=== PATIENT | female | born 1985 | race Caucasian/White ===

== ENCOUNTER → 2017-05-22 | Emergency (ER) | payer OTHER ==
[~2017-05-22] VITALS: Ht 157.5 cm; Wt 59.0 kg
[~2017-05-22] MED LIST: BACTROBAN OINT22 GM TP; COPAXONE20 MG/KIT; DAY T; KARIVA; OSEL75CA PO; TUSSI PRES-B L120 M1 PO
== END | disposition home or self-care (01) ==
LOC: ER 07:13
DX: B34.9 Viral infection, unspecified (principal)

== ENCOUNTER 2017-06-22 12:49 | Outpatient (CLI) | payer OTHER | END 2017-06-22 12:52 | disposition home or self-care (01) | LOC: SONOGRAMA 12:49 | DX: N60.02 Solitary cyst of left breast (principal); N64.3 Galactorrhea not associated with childbirth ==

== ENCOUNTER 2018-01-07 07:36 | Outpatient (CLI) | payer OTHER | END 2018-01-07 07:46 | disposition home or self-care (01) | LOC: MRI 07:36 | DX: G35 Multiple sclerosis (principal) | CPT/HCPCS: 70551; 72141 ==

== ENCOUNTER 2018-04-07 23:10 | Emergency (ER) | payer OTHER ==
[~2018-04-07] VITALS: Ht 157.5 cm; Wt 56.7 kg
[2018-04-08] MEDS ORDERED: PEPCID40 MG PO (03:44)
[2018-04-08] MEDS ORDERED: PHENERGAN25 MG PO (03:44)
== END 2018-04-08 03:56 | disposition home or self-care (01) ==
LOC: ER 23:10
DX: K52.9 Noninfective gastroenteritis and colitis, unspecified (principal)

== ENCOUNTER 2018-06-10 13:09 | Outpatient (CLI) | payer OTHER ==
[~2018-06-10 13:09] MED LIST changes: +PEPCID40 MG PO; +PHENERGAN25 MG PO
== END 2018-06-10 13:22 | disposition home or self-care (01) ==
LOC: SONOGRAMA 13:09
DX: N60.11 Diffuse cystic mastopathy of right breast (principal); N60.12 Diffuse cystic mastopathy of left breast; N63.10 Unspecified lump in the right breast, unspecified quadrant; N63.20 Unspecified lump in the left breast, unspecified quadrant; Z12.31 Encounter for screening mammogram for malignant neoplasm of breast; C50.919 Malignant neoplasm of unspecified site of unspecified female breast

== ENCOUNTER 2019-04-26 17:05 | Emergency (ER) | payer OTHER ==
[~2019-04-26] VITALS: Ht 157.5 cm; Wt 54.4 kg
== END 2019-04-26 19:04 | disposition home or self-care (01) ==
LOC: ER 17:05
DX: M62.838 Other muscle spasm (principal)

== ENCOUNTER 2019-05-17 21:54 | Emergency (ER) | payer OTHER ==
[~2019-05-17] VITALS: Ht 157.5 cm; Wt 56.7 kg
== END 2019-05-18 03:22 | disposition home or self-care (01) ==
LOC: ER 21:54
DX: R53.81 Other malaise (principal); R50.9 Fever, unspecified

== ENCOUNTER 2019-10-11 16:13 | Emergency (ER) | payer OTHER ==
[~2019-10-11] VITALS: Ht 157.5 cm; Wt 55.8 kg
[2019-10-13] MEDS ORDERED: ORPHENADRINE C100 MG PO ×2 (05:29→05:31)
[2019-10-13] MEDS ORDERED: KEFLEX500 MG PO ×2 (05:29→05:31)
== END 2019-10-11 23:41 | disposition home or self-care (01) ==
LOC: ER 16:13
DX: G35 Multiple sclerosis (principal); R53.81 Other malaise; R10.84 Generalized abdominal pain

== ENCOUNTER 2019-10-13 04:30 | Emergency (ER) | payer OTHER ==
[~2019-10-13] VITALS: Ht 157.5 cm; Wt 55.8 kg
[2019-10-13] MEDS ORDERED: KEFLEX500 MG PO ×3 (05:29→05:31)
[2019-10-13] MEDS ORDERED: ORPHENADRINE C100 MG PO ×3 (05:29→05:31)
[2019-10-13] MEDS ORDERED: TEGRETOL XR100 MG PO (16:31)
== END 2019-10-13 05:40 ==
LOC: ER 04:30
DX: M62.838 Other muscle spasm (principal); N39.0 Urinary tract infection, site not specified

== ENCOUNTER 2019-10-13 15:58 | Emergency (ER) | payer OTHER ==
[~2019-10-13] VITALS: Ht 157.5 cm; Wt 55.8 kg
[~2019-10-13 15:58] MED LIST changes: +KEFLEX500 MG PO; +ORPHENADRINE C100 MG PO
[2019-10-13] MEDS ORDERED: TEGRETOL XR100 MG PO (16:31)
== END 2019-10-13 16:35 | disposition home or self-care (01) ==
LOC: ER 15:58
DX: G40.89 Other seizures (principal)

== ENCOUNTER 2020-08-01 08:04 | Outpatient (CLI) | payer OTHER ==
[~2020-08-01 08:04] MED LIST changes: +TEGRETOL XR100 MG PO
== END 2020-08-01 08:05 | disposition home or self-care (01) ==
LOC: PPH VACUNA 08:04
DX: Z23 Encounter for immunization (principal)

== ENCOUNTER 2021-04-24 14:20 | Outpatient (CLI) | payer OTHER | END 2021-04-24 14:45 | disposition home or self-care (01) | LOC: PPH VACUNA 14:20 | PROVIDERS: ATTEND Emergency Medicine Pediatric Emergency Medicine | DX: Z23 Encounter for immunization (principal) ==

== ENCOUNTER 2021-10-11 14:43 | Emergency (ER) | payer OTHER ==
[~2021-10-11] VITALS: Ht 157.5 cm; Wt 59.4 kg
[2021-10-11] MEDS ORDERED: CIPRO500 MG PO (15:56)
== END 2021-10-11 16:05 | disposition home or self-care (01) ==
LOC: ER 14:43
DX: S51.812A Laceration without foreign body of left forearm, initial encounter (principal); W26.0XXA Contact with knife, initial encounter; Y93.9 Activity, unspecified; Y92.9 Unspecified place or not applicable; Y99.9 Unspecified external cause status

== ENCOUNTER 2025-02-27 07:55 | Emergency (ER) | payer OTHER ==
[~2025-02-27] VITALS: Ht 162.6 cm; Wt 59.0 kg
[~2025-02-27 07:55] MED LIST changes: +CIPRO500 MG PO
== END 2025-02-27 10:49 | disposition home or self-care (01) ==
LOC: ER 07:55
DX: S90.01XA Contusion of right ankle, initial encounter (principal); S90.31XA Contusion of right foot, initial encounter; S80.01XA Contusion of right knee, initial encounter; W18.39XA Other fall on same level, initial encounter; Y93.89 Activity, other specified; Y92.89 Other specified places as the place of occurrence of the external cause; Y99.9 Unspecified external cause status; Z88.0 Allergy status to penicillin; Z88.2 Allergy status to sulfonamides; Z88.8 Allergy status to other drugs, medicaments and biological substances

== ENCOUNTER 2025-04-03 02:27 | Emergency (ER) | payer OTHER ==
[~2025-04-03] VITALS: Ht 157.5 cm; Wt 59.0 kg
[2025-04-03] MEDS ORDERED: FAMOtidine 10 MG/ML (4ML VIAL) IV STA (04:16)
[2025-04-03] MEDS ORDERED: ONDANSETRON HCL 2 MG/ML VIAL IV STA (04:16)
[2025-04-03] MEDS ORDERED: ONDANSETRON HCL 2 MG/ML VIAL ONE ×2 (04:19→04:20)
[2025-04-03] MEDS ORDERED: FAMOTIDINE/PF 20 MG/2 ML VIAL ONE ×2 (04:19→04:20)
[2025-04-03 05:25] LABS: BASO % 0.4 % (0.1-1.2); EOS # 0.02 (0.04-0.54); EOS % 0.3 % (0.7-7.0); LYMPH # 1.72 (1.18-3.74); LYMPH % 23.8 % (19.3-53.1); MEAN PLATELET VOLUME 11.80 fl (9.4-12.4); MONO # 0.47 (0.24-0.82); MONO % 6.5 % (4.7-12.5); NEUT # 4.98 (1.56-6.13); NEUT % 68.7 % (34.0-71.1); RED CELL DISTRIBUTION WIDTH 13.4 % (11.6-14.4)
[2025-04-03 05:34] LABS: BUN CREA RATIO 11.0 (7.0-25.0); CREATININE SERUM 0.73 mg/dL (0.55-1.02); GFR 87.85; GLUCOSE FASTING 103.0 mg/dL (65-100); OSMOLALITY SERUM 282.0 MOSM/KG (275-295)
[2025-04-03 05:40] LABS: URINE APPEARANCE Clear; URINE BILIRRUBIN Negative (NEGATIVE); URINE BLOOD Large; URINE COLOR Yellow; URINE GLUCOSE Negative (NEGATIVE); URINE KETONE Negative (NEGATIVE); URINE LEUKOCYTE Small; URINE NITRATE Negative; URINE PROTEIN Negative (NEGATIVE); URINE UROBILINOGEN 0.2 E.U./dl
[2025-04-03 05:43] LABS: URINE BACTERIA 175.0 uL (0.0-1933); URINE EPITHELIAL CELLS 11.1 uL (0.0-38.8); URINE RBC 21.3 uL (0.0-20.8); URINE WBC 34.1 uL (0.0-23.2)
[2025-04-03 05:54] LABS: URINE CAST 0.00 uL (0.0-1.40)
== END 2025-04-03 06:39 | disposition home or self-care (01) ==
LOC: ER 02:28
PROVIDERS: General Practice
DX: T59.891A Toxic effect of other specified gases, fumes and vapors, accidental (unintentional), initial encounter (principal); R06.02 Shortness of breath; Y92.89 Other specified places as the place of occurrence of the external cause; Z88.0 Allergy status to penicillin; Z88.2 Allergy status to sulfonamides; Z88.8 Allergy status to other drugs, medicaments and biological substances